=== PATIENT | male | born 1975 | race Caucasian/White ===

== ENCOUNTER 2025-05-07 14:57 | Inpatient (IN) | payer SELFPAY ==
[2025-05-07 15:00] VITALS: BP 118/77; PULSE 74; TEMP 36.9; O2SAT 99; BMI 25.7
--- NOTE | 2025-05-07 15:22 | CTR_ITS ---
PROCEDURE INFORMATION: Exam: CT Abdomen And Pelvis With Contrast Exam date and time: 05/07/2025 3:43 PM Age: 49 years old Clinical indication: Abdominal pain; Periumbilical; Additional info: Abd pain TECHNIQUE: Imaging protocol: Computed tomography of the abdomen and pelvis with contrast. Radiation optimization: All CT scans at this facility use at least one of these dose optimization techniques: automated exposure control; mA and/or kV adjustment per patient size (includes targeted exams where dose is matched to clinical indication); or iterative reconstruction. Contrast material: OMNIPAQUE 350; Contrast volume: 100 ml; Contrast route: INTRAVENOUS (IV); COMPARISON: No relevant prior studies available. RADIATION DOSE METRICS: Total DLP (mGy-cm): 714.7 FINDINGS: Lungs: Visualized lung bases are clear. Liver: Incidental small hepatic cyst in the right lobe inferiorly measuring 0.8 cm. Otherwise normal appearance of the liver. Gallbladder and biliary ducts: Normal appearance of the gallbladder. No radiopaque cholelithiasis. Pancreas: Normal appearance of the pancreas. No ductal dilation. Spleen: Normal appearance of the spleen. Adrenal glands: Normal appearance of both adrenal glands. Kidneys and ureters: Punctate nonobstructing stone in the lower pole collecting system of the right kidney. Otherwise normal appearance both kidneys. No hydronephrosis or obstructing stone. Stomach and bowel: There is wall thickening and sigmoid colon associated with diverticula. Adjacent inflammatory stranding and small focus of free air suggesting diverticulitis with perforation. No evidence of an abscess formation. Normal appearance of the stomach. Normal appearance of the small bowel without luminal dilation suggested. Appendix: The appendix is identified and normal in appearance. No evidence of appendicitis. Intraperitoneal space: See Stomach and bowel finding. Vasculature: Normal appearance of the abdominal aorta. No evidence of atherosclerotic disease or aneurysm. Lymph nodes: Unremarkable. No enlarged lymph nodes. Urinary bladder: Normal appearance of the urinary bladder. No intravesicular stone. Reproductive: Unremarkable appearance of the prostate. Bones/joints: Regional osseous structures have a normal appearance. No fracture, aggressive osseous lesion or significant degenerative change is seen. Soft tissues: Mild fatty prominence in the inguinal canals suggesting small hernias. CT/CT abdomen pelvis w con* [id number] IMPRESSION: 1. Diverticulitis of the sigmoid colon with small focus of free air suggesting perforation. No evidence of an abscess. THIS REPORT CONTAINS FINDINGS THAT MAY BE CRITICAL TO PATIENT CARE. The findings were verbally communicated by me via telephone conference to AFSHIN ZAMORA at 4:00 PM SATURATOR TENDER on 05/07/2025. The findings were acknowledged and understood.
--- NOTE | 2025-05-07 15:23 | W.ED.ABDPA2 ---
HPI - Abdominal Pain General: Chief Complaint: Abdominal Pain Stated Complaint: abd temp Time Seen by Provider: 05/07/25 15:20 Source: patient Mode of arrival: ambulatory Limitations: no limitations History of Present Illness: 49-year-old male states that he has been having abdominal pain since . States is mainly in his lower abdomen he states pain is currently a 4 out of 10 states it waxes and wanes at its worst been 8 out of 10. States has had some constipation as well. States he had taken mag citrate with no relief. He has had some low-grade fevers at home denies any vomiting no history of any previous surgeries in the past Associated Symptoms: Reports constipation Related Data Allergies Allergy/AdvReac Type Severity Reaction Status Date / Time No Known Allergies Allergy Verified 05/07/25 15:05 Review of Systems GI: Reports: abdominal pain and constipation Physical Exam Const: COMMON NORMALS: no acute distress, patient oriented x3 and healthy appearing HENMT: COMMON NORMALS: normocephalic and atraumatic HEAD & SCALP: normocephalic and atraumatic Neck/C-Spine: COMMON NORMALS: full ROM and supple Chest: COMMONS NORMALS: normal inspection of the chest Resp: COMMON NORMALS: normal respiratory effort Cardio: COMMON NORMALS: regular rate RATE: regular rate GI: COMMON NORMALS: Normal to inspection, nondistended, normoactive bowel sounds present, Soft to palpation and no masses PALPATION: Yes Soft to palpation OTHER: lower abd tenderness Extremity: COMMON NORMALS: normal to inspection and full ROM Neuro: COMMON NORMALS: patient oriented x3, moves all extremities and no focal motor deficits Psych: COMMON NORMALS: mental status grossly normal, Normal thought process present and cooperative THOUGHT PROCESS: Normal thought process present Skin: COMMON NORMALS: no rashes or lesions noted and no wounds GENERAL SKIN EXAM: no rashes or lesions noted Course Vital Signs: Vital signs: Vital Signs Temperature 98.5 F 05/07/25 15:00 Pulse Rate 74 05/07/25 15:35 Respiratory Rate 16 05/07/25 15:35 Blood Pressure 144/86 05/07/25 15:35 Pulse Oximetry 97 05/07/25 15:35 Oxygen Delivery Me thod Room Air 05/07/25 15:00 MDM - Abdominal Pain Medical Decision Making Patient presents here with lower abdominal pains going on since Thursday with some slight constipation differential includes constipation, small bowel obstruction, diverticulitis, appendicitis. Patient's afebrile here did a CT scan of the abdomen that I reviewed myself does show diverticulitis with small focus of free air likely small perforation he has no signs of appendicitis or small bowel obstruction. Patient's lab work including white count here were normal. I did speak to surgeon on-call Dr. Jacobo who recommended admission for IV antibiotics with a small perforation and he is formally consulted. I spoke to hospitalist Dr. ALICE RIZO who is admitting I did go over all this with patient and he agrees with plan. You have him Charlottero and Flagbisi here in the ER Medical Records I reviewed the patient's medical records. Lab Data 05/07/25 15:05/07/25 15: Labs/Radiology: Radiology Impressions Abdomen/Pelvis CT 05/07/25 15: IMPRESSION: 1. Diverticulitis of the sigmoid colon with small focus of free air suggesting perforation. No evidence of an abscess. THIS REPORT CONTAINS FINDINGS THAT MAY BE CRITICAL TO PATIENT CARE. The findings were verbally communicated by me via telephone conference to AFSHIN ZAMORA at 4:00 PM POLICY WRITER on 05/07/2025. The findings were acknowledged and understood. Laboratory Results WBC 10.32 10^3/uL (3.29-11.43) 05/07/25: RBC 5.34 10^6/uL (3.85-5.65) 05/07/25 15: Hgb 16.20 g/dL (11.27-16.99) 05/07/25: Hct 47.1 % (37-53) 05/07/25 15: MCV 88.2 fl (82-101) 05/07/25 15: MCH 30.3 pg (27-33) 05/07/25 15: MCHC 34.4 g/dL (30-55) 05/07/25: RDW 12.4 % (12.1-15.1) 05/07/25 15: Plt Count 212 10^3/cmm (157-399) 05/07/25 15: MPV 10.3 fL (7.4-10.4) 05/07/25: Neut % (Auto) 76.5 % 05/07/25 15:26 Lymph % (Auto) 13.6 % 05/07/25 15:26 Mercer % (Auto) 9.0 % 05/07/25 15:26 Eos % (Auto) 0.5 % 05/07/25 15: Baso % (Auto) 0.1 % 05/07/25 15: Neut # (Auto) 7.90 10^3/uL (1.8-7.7) H 05/07/25 15: Lymph # (Auto) 1.4 10^3/uL (0.8-4.8) 05/07/25 15: Mercer # (Auto) 0.9 10^3/uL (0.2-0.9) 05/07/25 15: Eos # (Auto) 0.1 10^3/uL (0.0-0.8) 05/07/25 15: Baso # (Auto) 0.0 10^3/uL (0.0-0.1) 05/07/25 15: Nucleated RBC % (auto) 0 % 05/07/25 15: Nucleated RBCs # 0.0 /100WBC 05/07/25 15:26 Sodium 136 mmol/L (136-145) 05/07/25 15: Potassium 4.6 mmol/L (3.5-5.1) 05/07/25 15: Chloride 100 mmol/L (98-107) 05/07/25 15: Carbon Dioxide 28 mmol/L (22-29) 05/07/25 15: Anion Gap 12.6 (5-19) 05/07/25 15:26 BUN 8 mg/dL (6-20) 05/07/25 15: Creatinine 0.9 mg/dL (0.7-1.2) 05/07/25 15: GFR Calculation 90.4 mL/min (90-130) 05/07/25 15: Glucose 104 mg/dL (65-115) 05/07/25 15:26 Calculated Osmolality 281 mOsm/kg (285-295) L 05/07/25 15: Calcium 9.2 mg/dL (8.5-10.5) 05/07/25 15: Total Bilirubin 0.8 mg/dL (0.15-1.2) 05/07/25 15:26 AST 20 U/L (0-40) 05/07/25 15:26 ALT 28 U/L (0-41) 05/07/25 15:26 Alkaline Phosphatase 59 U/L (40-130) 05/07/25 15:26 Total Protein 7.4 g/dL (6.6-8.7) 05/07/25 15:26 Albumin 4.4 g/dL (3.5-5.2) 05/07/25 15:26 Globulin 3.0 g/dL (1.3-4.6) 05/07/25 15:26 Lipase 27 U/L (13-60) 05/07/25 15:26 All radiology interpretation(s) finalized by discharge Discharge Plan Discharge Patient Disposition: Admitted As Inpatient Clinical Impression: Diverticulitis Condition: Stable Coding Level of Care Code ED City Dispatcher for Stevie Mejia
[2025-05-07 15:35] VITALS: BP 144/86; PULSE 74; RESP 16; O2SAT 97
[2025-05-07 15:43] LABS: Hematocrit 47.1 % (37-53); Hemoglobin 16.20 g/dL (11.27-16.99); Mean Corpuscular HGB Conc 34.4 g/dL (30-55); Mean Corpuscular Hemoglobin 30.3 pg (27-33); Mean Corpuscular Volume 88.2 fl (82-101); Nucleated Red Blood Cells % 0 %; Platelet Count 212 10^3/cmm (157-399); Red Blood Count 5.34 10^6/uL (3.85-5.65); White Blood Count 10.32 10^3/uL (3.29-11.43)
[2025-05-07] MEDS: iohexol 350 mg/mL 500 mL Btl (per mL) IV (15:46)
[2025-05-07 16:04] VITALS: BP 124/89; PULSE 75; RESP 14; O2SAT 98
[2025-05-07 16:07] LABS: Alanine Aminotransferase 28 U/L (0-41); Albumin Level 4.4 g/dL (3.5-5.2); Alkaline Phosphatase 59 U/L (40-130); Anion Gap 12.6 (5-19); Aspartate Amino Transferase 20 U/L (0-40); Blood Urea Nitrogen 8 mg/dL (6-20); Calcium 9.2 mg/dL (8.5-10.5); Carbon Dioxide 28 mmol/L (22-29); Chloride 100 mmol/L (98-107); Globulin 3.0 g/dL (1.3-4.6); Glucose 104 mg/dL (65-115); Lipase 27 U/L (13-60); Osmolality Calculated 281 mOsm/kg (285-295); Potassium 4.6 mmol/L (3.5-5.1); Sodium 136 mmol/L (136-145); Total Protein 7.4 g/dL (6.6-8.7)
[2025-05-07] MEDS: metroNIDAZOLE IV 500 MG/100 ML PREMIX 100 MG IV (16:20)
[2025-05-07 16:49] VITALS: BP 125/89; PULSE 74; O2SAT 98
[2025-05-07 16:56] VITALS: BMI 25.7
--- NOTE | 2025-05-07 17:13 | P.CONIM_ITS ---
Providers/Reason For Consult 2 Consulting Physician/Specialty*: General Surgery Reason for Consult*: Diverticulitis with perforation Attending Physician: Denny Lamar MD Primary Care Provider: Davis Alcaraz MD History of Present Illness History of Present Illness Stan Colunga is a 49 year old male With no significant past medical history who presents to the hospital with abdominal pain over the last week, according to the patient on Thursday he tried to have a bowel movement after that he had significant abdominal pain and sweating since then he has been having intermittent abdominal pain and has only been having small amounts of diarrhea but no real bowel movement. He attempted to use magnesium citrate with no significant effect. Due to persistent abdominal pain he presented to the ER today where CT scan showed evidence of acute diverticulitis with evidence of a Complaint. I was consulted for this finding Review of Systems 2 General: Reports: 10 or more systems reviewed and unremarkable except in HPI and below Medications/Allergies Home Medications ?Medication ?Instructions ?Recorded ?Confirmed ?Last Taken ?Type No Known Home Medications 05/07/2504/22 Unknown History Allergies Allergy/AdvReac Type Severity Reaction Status Date / Time No Known Allergies Allergy Verified 05/07/25 15:05 Vitals/I&O/Wt Last Vital Signs Temp 98.5 F 05/07/25 15:00 Pulse 74 05/07/25 16:49 Resp 14 05/07/25 16:04 BP 125/89 05/07/25 16:49 Pulse Ox 98 05/07/25 16:49 O2 Del Method Room Air 05/07/25 15:00 Weight last 48 hrs Weight 190 lb Weight 190 lb Weight 190 lb Physical Exam 2 GI: OTHER: Abdominal exam is benign the abdomen is soft there is mild tenderness in the mid abdomen and pelvis. Data 05/07/25 15:26 05/07/25 15:26 A&P Assessment and plan 1. Diverticulitis of colon with perforation: Plan: After complete history and physical examination review of all available clinical data the following is my assessment. 49-year-old male presenting with acute diverticulitis with contained perforation. No acute surgical intervention is indicated at this time. Due to finding of perforation I agree with the need of hospital admission for IV antibiotics for the next 24 to 48 hours. From my standpoint patient should be kept on clears over the first 12 hours and then tomorrow he can be advanced to full liquid diet as tolerated and if tolerating he can be transition to a GI soft diet before discharge. In the long-term he might benefit from a sigmoid colectomy to prevent recurrence of diverticulitis with perforation but no intervention is anticipated during this hospital stay. I recommend that he completes total of 10 days of antibiotics between the inpatient outpatient setting. I will continue to follow-up while the patient is in house. PDMP PDMP Reviewed: Not Reviewed Coding Level of Care Code Acute Code for [facility] Diagnoses Diverticulitis of colon with perforation K57.20
[2025-05-07 17:16] VITALS: BP 131/86; PULSE 69; RESP 17; TEMP 36.4; O2SAT 96
--- NOTE | 2025-05-07 18:03 | P.HP_ITS ---
Providers/Chief Complaint 2 Admitting Physician: Denny Lamar MD Primary Care Provider: Davis Alcaraz MD Chief Complaint: abd temp History of Present Illness Stan Colunga is a 49 year old male with no significant prior medical history presenting with complaints of abdominal pain. Patient reports that for the last week he has had abdominal pain that has become progressively worse, with the worst being 8/10. Endorses difficult bowel movements that amount to small amounts of diarrhea. He complains of increased abdominal pain and diaphoresis despite trying [id number] mag citrate. Endorses subjective low-grade fev.er. He presented to [facility] ED for evaluation today. Pain rated 4/10. In the ED, BP 131/86, HR 69, RR 17, T97.5, O2 96% on room air. WBC 10.32, Hgb 16.2, PLT 212. Creatinine 0.9, bun 8. AST/ALT WNL. Lipase 27. Potassium 4.6. CT abdomen pelvis; diverticulitis of the sigmoid colon with small focus of free air suggesting perforation, no evidence of abscess, see full results. Will admit to hospitalist service for further evaluation and treatment. Review of Systems 2 Const: Reports: diaphoresis GI: Reports: abdominal pain, nausea, diarrhea and constipation Medications/Allergies Home Medications ?Medication ?Instructions ?Recorded ?Confirmed ?Last Taken ?Type No Known Home Medications 05/07/2504/22 Unknown History Allergies Allergy/AdvReac Type Severity Reaction Status Date / Time No Known Allergies Allergy Verified 05/07/25 15:05 Vitals/I&O/Wt Last Vital Signs Temp 97.5 F L 05/07/25 17:16 Pulse 69 05/07/25 17:16 Resp 17 05/07/25 17:16 BP 131/86 05/07/25 17:16 Pulse Ox 96 05/07/25 17:16 O2 Del Method Room Air 05/07/25 16:56 05/07/25 05/07/25 05/07/25 06:59 14:59 22:59 Intake Total 300 / 300 Balance 300 / 300 Weight last 48 hrs Weight 86.183 kg Weight 86.183 kg Weight 86.183 kg Physical Exam 2 HENMT: COMMON NORMALS: normocephalic and atraumatic Eye: COMMON NORMALS: Equal, round and reactive pupils present and EOMs intact bilaterally Neck/C-Spine: COMMON NORMALS: full ROM Lymph: LYMPHATIC: no lymphadenopathy noted Chest: COMMONS NORMALS: normal inspection of the chest Resp: COMMON NORMALS: normal respiratory effort Cardio: COMMON NORMALS: regular rate and regular rhythm GI: PALPATION: Yes Tenderness to palpation present (GI) Back/Pelvis: COMMON NORMALS: no CVA tenderness Extremity: COMMON NORMALS: normal to inspection Neuro: COMMON NORMALS: patient oriented x3 Psych: COMMON NORMALS: Normal thought process present, cooperative and normal affect Data 05/07/25 15:26 05/07/25 15:26 A&P Assessment and plan 1. Diverticulitis of colon with perforation: WBC 10.32 CT abdomen pelvis; diverticulitis of the sigmoid colon with small focus of free air suggesting perforation, no evidence of abscess, see full results. Clear liquid diet On 05/08/2025 we can advance to full liquid diet General Surgery consulted, recommendations appreciated No acute surgical intervention currently indicated For symptom management Fluids IV antibiotics inpatient -Cipro, Flagyl Complete p.o. antibiotic course after discharge up through 10 days total treatment Pain management 2. Constipation: Clear liquid diet On 05/08/2025 we can advance to full liquid diet I&O PDMP PDMP Reviewed: Not Reviewed Attestations 2 Medical Necessity Statement*: Continued hospitalization for > 2 midnights to monitor pain management, the need for 2 days of antibiotics per general surgery and general medical management. Diagnoses Diverticulitis of colon with perforation K57.20 Constipation K59.00 Time Spent (min) 70
[2025-05-07 18:29] VITALS: BP 124/77; PULSE 75; RESP 18; TEMP 37.1; O2SAT 95
[2025-05-07 19:10] LABS: Lactic Sepsis W/Reflex 0.9 mmol/L (0.5-2.2)
[2025-05-07] MEDS: pantoprazole 40 mg SDV IVP (20:20)
[2025-05-08] VITALS: BP 101/65; PULSE 63; RESP 18; TEMP 36.6; O2SAT 95
[2025-05-08] MEDS: metroNIDAZOLE IV 500 MG/100 ML PREMIX 100 MG IV ×2 (00:37→07:27)
[2025-05-08 04:00] VITALS: BP 113/80; PULSE 62; RESP 18; TEMP 36.4; O2SAT 98
[2025-05-08 04:24] LABS: Hematocrit 44.8 % (37-53); Hemoglobin 15.30 g/dL (11.27-16.99); Mean Corpuscular HGB Conc 34.2 g/dL (30-55); Mean Corpuscular Hemoglobin 29.8 pg (27-33); Mean Corpuscular Volume 87.3 fl (82-101); Nucleated Red Blood Cells % 0 %; Platelet Count 177 10^3/cmm (157-399); Red Blood Count 5.13 10^6/uL (3.85-5.65); White Blood Count 6.97 10^3/uL (3.29-11.43)
[2025-05-08 04:39] LABS: Anion Gap 11.4 (5-19); Blood Urea Nitrogen 7 mg/dL (6-20); Calcium 9.1 mg/dL (8.5-10.5); Carbon Dioxide 29 mmol/L (22-29); Chloride 103 mmol/L (98-107); Glucose 101 mg/dL (65-115); Osmolality Calculated 286 mOsm/kg (285-295); Potassium 4.4 mmol/L (3.5-5.1); Sodium 139 mmol/L (136-145)
[2025-05-08] MEDS: pantoprazole 40 mg SDV IVP (05:37)
[2025-05-08 06:00] VITALS: BMI 25.7
--- NOTE | 2025-05-08 06:58 | P.PN_ITS ---
Subjective 2 Subjective: Patient showing excellent progression, no abdominal pain, passing gas. Vitals/I&O/Wt Last Vital Signs Temp 97.6 F 05/08/25 04:00 Pulse 62 05/08/25 04:00 Resp 18 05/08/25 04:00 BP 113/80 05/08/25 04:00 Pulse Ox 98 05/08/25 04:00 O2 Del Method Room Air 05/08/25 04:00 05/07/25 05/07/25 05/08/25 14:59 22:59 06:59 Intake Total 300 / 300 541.25 / 841.25 Output Total 200 / 200 300 / 500 Balance 100 / 100 241.25 / 341.25 Weight last 48 hrs Weight 190 lb Weight 190 lb Weight 190 lb Weight 190 lb Physical Exam 2 GI: OTHER: Benign abdominal examination abdomen soft nontender nondistended. Data 05/08/25 04:10 05/08/25 04:10 A&P Assessment and plan 1. Diverticulitis of colon with perforation: Plan: Patient showing excellent progression, white count this morning is completely normal, laboratory workup is also unremarkable and vital signs are normal. He is passing gas no significant pain. He can have a full liquid diet this morning if tolerating he can be advance to a GI soft diet by lunch. Due to patient progression I think it is appropriate for him to transition home this afternoon if he is tolerating diet he can follow-up with the general surgery clinic as outpatient. He should complete a 10-day course of antibiotics as outpatient. I will recommend that she is on once a day MiraLAX in the long-term to facilitate bowel movements. PDMP PDMP Reviewed: Not Reviewed Attestations 2 Medical Necessity Statement*: Per medical Coding Level of Care Code Acute Code for [facility] Diagnoses Diverticulitis of colon with perforation K57.20
[2025-05-08 08:00] VITALS: BP 112/70; PULSE 80; RESP 18; TEMP 36.3; O2SAT 95
[2025-05-08] MEDS: polyethylene glycol 3350 Pkt 17 gm PO (08:30)
--- NOTE | 2025-05-08 09:50 | PM.PN ---
Vitals/I&O/Wt Last Vital Signs Temp 97.4 F L 05/08/25 08:00 Pulse 80 05/08/25 08:00 Resp 18 05/08/25 08:00 BP 112/70 05/08/25 08:00 Pulse Ox 95 05/08/25 08:00 O2 Del Method Room Air 05/08/25 04:00 05/07/25 05/08/25 05/08/25 22:59 06:59 14:59 Intake Total 300 / 300 541.25 / 841.25 460 / 460 Output Total 200 / 200 300 / 500 Balance 100 / 100 241.25 / 341.25 460 / 460 Weight last 48 hrs Weight 86.183 kg Weight 86.183 kg Weight 86.183 kg Weight 86.183 kg Data 05/08/25 04:10 05/08/25 04:10 A&P PDMP PDMP Reviewed: Not Reviewed Coding Level of Care Code Acute Code for [facility]
[2025-05-08 10:55] VITALS: BP 105/70; PULSE 68; RESP 19; TEMP 36.6; O2SAT 95
--- NOTE | 2025-05-08 14:33 | PM.MISC ---
Miscellaneous Note Purpose of Documentation: Update on patient care Note: Patient has tolerated diet has a several bowel movements no significant abdominal pain no distention he is feeling much better. From the general surgery standpoint he is safe to transition to the outpatient setting in the GI soft diet. He should complete a 10-day course of antibiotics he can follow-up with us as outpatient.
--- NOTE | 2025-05-08 14:51 | P.DS_ITS ---
Discharge Providers Date of Admission: 05/07/25 16:23 Date of Discharge: May 08, 2025 Attending Provider at Admission: Denny Lamar MD Attending Provider at Discharge: Denny Lamar MD Primary Care Provider: Davis Alcaraz MD Diagnoses at Discharge Discharge Diagnosis 1. Diverticulitis of colon with perforation: Reason for Visit Reason for Visit: abd temp Brief History: Patient presented this morning with complaint of abdominal pain. CT imaging showed features of diverticulitis with suspected perforation. As a result, he was admitted, and started on IV Cipro and Flagyl. He was rehydrated intravenous, while other symptoms were treated empirically. General surgery was consulted. Hospital Course Hospital Course As of this late morning, patient's symptoms had remarkably improved. He was advanced diet, which he tolerated very well. Consequently, he requested for discharge. General surgery saw him later thisafternoon, and based on remarkable improvement over the last 12-24 hours, therefore recommended for discharge on oral antibiotics. He is advised to follow-up within 10 to 14 days. Given all this, he is therefore discharged as directed/requested. Physical Exam Narrative: General: Awake and alert. Cooperative. Chest/Resp: Normal respiratory chest movts; no obvious respiratory distress. GI: Nontender with very mild guarding. Otherwise non-distended; No obvious organomegaly. Extremities: No obvious pitting pedal edema. Skin: No obvious new rashes or new skin lesions. Discharge Data Studies Completed and Pending Completed Studies During Hospitalization Category Date Time Status CT abdomen pelvis w con* [id number] Stat Cat Scan 05/07/25 15:22 Completed Radiology Impressions Abdomen/Pelvis CT 05/07/25 15:22 IMPRESSION: Diverticulitis of the sigmoid colon with small focus of free air suggesting perforation. No evidence of an abscess. Laboratory Results CBC and CMP x 2 (this morning & yesterday) all within normal limits. Vitals Last Vital Signs Temp 97.9 F 05/08/25 10:55 Pulse 68 05/08/25 10:55 Resp 19 H 05/08/25 10:55 BP 105/70 05/08/25 10:55 Pulse Ox 95 05/08/25 10:55 O2 Del Method Room Air 05/08/25 10:55 Discharge Plan Discharge Patient Disposition: Home Condition: Stable Prescriptions: New ciprofloxacin HCl 500 mg tablet 500 mg PO BID 10 Days Qty: 20 0RF metronidazole 500 mg tablet 500 mg PO Q8H 10 Days Qty: 30 0RF dicyclomine 10 mg capsule 10 - 20 mg PO QID PRN (Reason: abdominal pain/cramps) Qty: 30 3RF hydrocodone-acetaminophen 5-325 mg tablet 1 tab PO Q6H PRN (Reason: pain) Qty: 20 0RF Conservation Enforcement Officer OK for DC: Surgery Discharge Order = DC NOW: Discharge Order (Routine); Ordered 05/08/25 Ordered By: Denny Lamar Referrals: Tristin Jacobo MD [Physician, General Surgery] - 05/22/25 9:20 am Sis Charles FNP-C [Nurse Practitioner, Family Practice] Referral Note: [facility] WILL CALL WITH APPOINTMENT FOLLOW UP AT [facility] We have notified your physician's clinic of the need for a follow-up appointment to be scheduled. If you have not heard from them within the next 2 business days, please call them directly. Discharge Diet: Advance as tolerated and Usual diet Discharge Activity: Resume usual activity Patient Instructions: Ciprofloxacin (By mouth), Dicyclomine (By mouth), Hydrocodone/Acetaminophen (By mouth), Metronidazole (By mouth) (Flagyl, Flagyl 375, Flagyl ER, Likmez), Diverticulitis (DC), Abdominal Pain (ED), Opioid Safety, Patient Portal & Kamala Instructions Activity Restrictions/Additional Instructions: Follow-up with your primary care provider within the next 1 to 2 weeks/as needed. Follow-up with the surgeon in about 10 days/as directed. Discharge Attestations Time Spent in Discharge Care*: less than 30 min Quality Metrics Clinical Quality Measures [ No reported AMI, CVA or VTE this stay] Coding Level of Care Code 47784 Diagnoses Diverticulitis of colon with perforation K57.20
[2025-05-08 15:58] VITALS: BP 144/81; PULSE 65; RESP 18; TEMP 36.9; O2SAT 98
[2025-05-08 17:34] VITALS: BP 144/81; PULSE 65; RESP 18; TEMP 36.9; O2SAT 98
== END 2025-05-08 17:36 | disposition home or self-care (01) | DRG 392 ==
LOC: ER 16:27 → MEDSURG 16:37
PROVIDERS: Clinical Nurse Specialist Acute Care; Admitting Provider Family Medicine; Emergency Provider Emergency Medicine; PCP Family Medicine; Visit Provider Family Medicine
DX: K57.20 Diverticulitis of large intestine with perforation and abscess without bleeding (principal); K59.00 Constipation, unspecified
CPT/HCPCS: 36415; 74177; 80048; 80053; 83605; 83690; 85025; 96365; 96367; 99285; J0744; J2405; J2470; J3490; J7030; J9999